=== PATIENT | male | born 1980 | race African-American/Black ===

== ENCOUNTER 2022-04-18 08:59 | Outpatient (CLI) | payer OTHER, SELFPAY ==
--- NOTE | ~2022-04-18 | MR_ITS ---
EXAMINATION: MR knee RT wo con DATE: 04/18/2022 10:22 INDICATION: Transient the medial meniscus of the right knee presenting with medial knee pain and swel ling TECHNIQUE: Magnetic resonance imaging (MRI) of the right knee was performed without intravenous contr ast. Sequences included coronal PD-weighted FSE, coronal PD-weighted FS FSE, sagittal T2-weighted FS E, sagittal PD-weighted FS FSE and axial PD weighted fat saturated FSE. COMPARISON: None. FINDINGS: Medial compartment: Medial extrusion of the medial meniscal body. The medial meniscal body and posterior horn are small s uggesting prior partial meniscectomy. There is likely some residual fraying along the inner free edge of the body and posterior horn. Partial-thickness cartilage loss with chondral surface irregularity at the anterior to central weightbearing medial femoral condyle. Small central subchondral osteophyte s extend across the central to lateral aspect of the anterior weightbearing medial femoral condyle. A dditional partial thickness cartilage loss and chondral surface regularity at the central aspect of t he medial tibial plateau with more severe cartilage loss with mild subarticular edema-like signal crystal nge at the medial aspect of the medial tibial plateau. Lateral compartment: Lateral meniscus is normal. Large flat central subchondral osteophyte replacing the articular cartila ge at the central aspect of the weightbearing lateral femoral condyle. Deep chondral fissuring at the more anterior and posterior weightbearing lateral femoral condyle. There is partial thickness chondr al ulceration with additional small central subchondral osteophytes at the central aspect of the late ral tibial plateau. 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 Partial-thickness chondral ulceration at the cephalad caudal and medial and lateral margins of the patella. Ligaments and tendons: Anterior and posterior cruciate ligaments are normal. The medial collateral ligament and fibular phong ateral ligament complex are normal. Mild tendinopathy/enthesopathy at the insertion of the distal maia driceps and proximal distal patellar tendons. The visualized medial and lateral hamstring tendons as well as the iliotibial band are normal. Fluid: Physiologic amount of fluid in the joint space. No loose osteochondral bodies identified. Osseous/other: Bone alignment is normal. No fracture or pathologic marrow replacing process. Large marginal osteophy shante in the medial and patellofemoral compartments and moderate-sized marginal osteophytes at the late ral compartment. IMPRESSION: 1. Extrusion of the small body and posterior medial meniscus suggesting prior partial mastectomy with some residual fraying along the inner free edge. 2. 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 Reviewed, dictated and finalized at location A. NTER IMPRESSION: 1. Extrusion of the small body and posterior medial meniscus suggesting prior p artial mastectomy with some residual fraying along the inner free edge. 2. Tricompartmental osteoarthritis, moderate severity in the medial and patello femoral compartment and mild in the lateral compartment, all 3 with regions of high-grade chondromalacia.
== END 2022-04-18 09:00 | disposition home or self-care (01) ==
LOC: ANHIMG 09:10
DX: M17.11 Unilateral primary osteoarthritis, right knee (principal)
CPT/HCPCS: 73721